=== PATIENT | male | born 1995 | race Caucasian/White ===

== ENCOUNTER 2017-04-08 20:34 | Inpatient (IN) | payer BC ==
[~2017-04-08] VITALS: Ht 185.4 cm; Wt 118.6 kg
[2017-04-08 21:39] LABS: HEMATOCRIT 44.6 % (38.0-50.0); HEMOGLOBIN 15.2 G/DL (12.5-16.6); MCHC 34.1 G/DL (30.0-36.0); MCV 88.1 FL (86-99); PLATELET COUNT 288 K/uL (156-360); RBC DIS.WIDTH-CV 12.5 % (11.8-14.6); RBC DIS.WIDTH-SD 40.7 % (39-53); RED BLOOD COUNT 5.06 M/uL (4.00-5.50); WHITE BLOOD COUNT 18.8 K/uL (4.1-10.2)
[2017-04-08 21:47] LABS: ALBUMIN 4.2 g/dL (3.2-4.8); CHLORIDE 104 mEq/L (99-109); POTASSIUM 4.3 mEq/L (3.7-5.4); SODIUM 135 mEq/L (136-147)
[2017-04-08 21:50] LABS: GLUCOSE 104 mg/dL (70-99); TOTAL PROTEIN 7.8 g/dL (6.4-8.3)
[2017-04-08 21:52] LABS: TOTAL BILIRUBIN 0.9 mg/dL (0.0-1.0)
[2017-04-08 21:53] LABS: ALKALINE PHOSPHATASE 113 IU/L (3-129); GFR ESTIMATE (CALCULATED) > 59 mL/min/ (58.99-99999)
[2017-04-08 21:54] LABS: UREA NITROGEN (BUN) 16 mg/dL (9-23)
[2017-04-08 21:55] LABS: AST (GOT) 17 IU/L (2-34)
[2017-04-08 21:56] LABS: ALT (GPT) 32 IU/L (3-49)
[2017-04-08] MEDS ORDERED: BACTRIM,SEPT1 TABLET PO (22:55)
[2017-04-08] MEDS ORDERED: IBUPROFEN800 MG PO (22:56)
[2017-04-08] MEDS ORDERED: ASCORBIC ACID500 M1 PO (22:58)
[2017-04-09 03:13] VITALS: BP 143/82
[2017-04-09 08:07] VITALS: BP 143/60
[2017-04-09 12:22] VITALS: BP 139/76
[2017-04-09 16:33] VITALS: BP 131/66
[2017-04-09 19:32] VITALS: BP 126/67
[2017-04-09 23:34] VITALS: BP 132/63
[2017-04-10 06:24] LABS: HEMATOCRIT 39.1 % (38.0-50.0); HEMOGLOBIN 13.3 G/DL (12.5-16.6); MCH 30.2 PG (29.0-34.0); MCV 88.9 FL (86-99); PLATELET COUNT 259 K/uL (156-360); RBC DIS.WIDTH-CV 12.2 % (11.8-14.6); RBC DIS.WIDTH-SD 40.1 % (39-53); WHITE BLOOD COUNT 12.3 K/uL (4.1-10.2)
[2017-04-10 06:47] LABS: CHLORIDE 105 MEQ/L (99-109); CREATININE 0.8 MG/DL (0.6-1.3); GFR ESTIMATE (CALCULATED) > 59 mL/min/ (58.99-99999); GLUCOSE 85 mg/dL (70-99); SODIUM 138 MEQ/L (136-147); UREA NITROGEN (BUN) 13 mg/dL (9-23)
[2017-04-10 08:09] VITALS: BP 129/68
[2017-04-10 16:16] VITALS: BP 133/69
[2017-04-10 19:55] VITALS: BP 108/50
[2017-04-10 23:16] VITALS: BP 128/69
[2017-04-11 07:48] LABS: HEMATOCRIT 42.4 % (38.0-50.0); MCH 29.2 PG (29.0-34.0); MCV 88.3 FL (86-99); PLATELET COUNT 285 K/uL (156-360); RBC DIS.WIDTH-SD 38.8 % (39-53); WHITE BLOOD COUNT 13.1 K/uL (4.1-10.2)
[2017-04-11 08:10] VITALS: BP 130/72; BP 1330/72
[2017-04-11 16:37] VITALS: BP 122/78
[2017-04-11 21:44] VITALS: BP 137/77
[2017-04-11 21:45] VITALS: BP 137/77
[2017-04-12 00:45] VITALS: BP 131/76
[2017-04-12 05:48] LABS: HEMATOCRIT 42.6 % (38.0-50.0); HEMOGLOBIN 14.4 G/DL (12.5-16.6); MCH 29.4 PG (29.0-34.0); MCHC 33.8 G/DL (30.0-36.0); MCV 86.9 FL (86-99); PLATELET COUNT 339 K/uL (156-360); RBC DIS.WIDTH-CV 11.7 % (11.8-14.6); RBC DIS.WIDTH-SD 37.6 % (39-53)
[2017-04-12 06:10] LABS: ALBUMIN 3.8 G/DL (3.2-4.8); ALKALINE PHOSPHATASE 98 IU/L (3-129); ALT (GPT) 28 IU/L (3-49); AST (GOT) 20 IU/L (2-34); CHLORIDE 104 MEQ/L (99-109); GFR ESTIMATE (CALCULATED) > 59 mL/min/ (58.99-99999); GLUCOSE 121 mg/dL (70-99); POTASSIUM 4.1 MEQ/L (3.7-5.4); SODIUM 138 MEQ/L (136-147); TOTAL BILIRUBIN 0.6 MG/DL (0.0-1.0); TOTAL PROTEIN 7.3 G/DL (6.4-8.3); UREA NITROGEN (BUN) 18 mg/dL (9-23)
[2017-04-12 08:06] VITALS: BP 149/75
[2017-04-12 16:03] VITALS: BP 143/77
[2017-04-12 20:00] VITALS: BP 136/68
[2017-04-13] VITALS (7 sets, daily range): BP systolic 131–138; BP diastolic 63–82
[2017-04-13 07:56] LABS: HEMATOCRIT 43.2 % (38.0-50.0); HEMOGLOBIN 14.6 G/DL (12.5-16.6); MCH 30.1 PG (29.0-34.0); MCHC 33.8 G/DL (30.0-36.0); MCV 89.1 FL (86-99); PLATELET COUNT 326 K/uL (156-360); RBC DIS.WIDTH-CV 12.1 % (11.8-14.6); RBC DIS.WIDTH-SD 39.7 % (39-53); RED BLOOD COUNT 4.85 M/uL (4.00-5.50); WHITE BLOOD COUNT 13.5 K/uL (4.1-10.2)
[2017-04-13 08:12] LABS: ALBUMIN 3.7 G/DL (3.2-4.8); ALKALINE PHOSPHATASE 92 IU/L (3-129); ALT (GPT) 30 IU/L (3-49); AST (GOT) 21 IU/L (2-34); CHLORIDE 106 MEQ/L (99-109); CREATININE 0.9 MG/DL (0.6-1.3); GFR ESTIMATE (CALCULATED) > 59 mL/min/ (58.99-99999); GLUCOSE 88 mg/dL (70-99); POTASSIUM 4.6 MEQ/L (3.7-5.4); SODIUM 140 MEQ/L (136-147); TOTAL BILIRUBIN 0.5 MG/DL (0.0-1.0); TOTAL PROTEIN 6.5 G/DL (6.4-8.3); UREA NITROGEN (BUN) 18 mg/dL (9-23)
[2017-04-13] MEDS ORDERED: OXYCODONE-APAP1 EACH PO (19:56)
== END 2017-04-13 21:15 | disposition home health service (06) | DRG 854 ==
LOC: EME 20:34 → 3EAST 04-09 00:31 → EDOF 04-09 00:31 → ENRESERV 04-09 00:36 → 3EAST 04-09 02:38 → ENRESERV 04-12 15:05 → 2EAST 04-12 18:58
PROVIDERS: Hospitalist; Internal Medicine; Physician Assistant
PROC: 0H9MXZX Drainage of Right Foot Skin, External Approach, Diagnostic (ICD-10-PCS; principal; 2017-04-09)
PROC: 0J9Q0ZZ Drainage of Right Foot Subcutaneous Tissue and Fascia, Open Approach (ICD-10-PCS; 2017-04-11)
DX: A41.9 Sepsis, unspecified organism (principal); L02.611 Cutaneous abscess of right foot; L03.115 Cellulitis of right lower limb; B95.62 Methicillin resistant Staphylococcus aureus infection as the cause of diseases classified elsewhere; F17.200 Nicotine dependence, unspecified, uncomplicated; Z83.3 Family history of diabetes mellitus
CPT/HCPCS: 73660; 73720; 80048; 80053; 80202; 83605; 85027; 87040; 87070; 87075; 87077; 87147; 87186; 87205; 99281; 99285; J1100; J1650; J1885; J2250; J2270; J3010; J3370; J7030; S0020

== ENCOUNTER 2017-04-14 08:18 | Emergency (ER) | payer BC ==
[~2017-04-14] VITALS: Ht 182.9 cm; Wt 118.6 kg
[~2017-04-14 08:18] MED LIST: ASCORBIC ACID500 M1 PO; BACTRIM,SEPT1 TABLET PO; IBUPROFEN800 MG PO; OXYCODONE-APAP1 EACH PO
[2017-04-14 15:10] VITALS: BP 138/88
== END 2017-04-14 15:12 | disposition home or self-care (01) ==
LOC: EME 08:18
DX: Z48.03 Encounter for change or removal of drains (principal); Z86.14 Personal history of Methicillin resistant Staphylococcus aureus infection; Z87.891 Personal history of nicotine dependence
CPT/HCPCS: 99281; 99284